=== PATIENT | male | born 1995 | race Caucasian/White ===

== ENCOUNTER 2017-02-26 19:37 | Emergency (ER) | payer OTHER ==
--- NOTE | 2017-02-26 21:02 | EDPHY ---
H & P Stated Complaint: thinks he has food stuck in throat Time Seen by Provider: 02/26/17 20:59 HPI/ROS: CHIEF COMPLAINT: Food stuck in throat HISTORY OF PRESENT ILLNESS: This patient is a 21 year old male complaining of a sensation of food stuck in his throat since this afternoon. He was eating chicken and felt a piece lodge in throat around the laryngeal prominence. He tried to vomit for an hour with no relief. He is able to breathe, talk, and swallow secretions. He had a similar episode about four years ago while eating steak. No other symptoms or complaints. REVIEW OF SYSTEMS: A 10 point review of systems was performed and is negative with the exception of the elements mentioned in the history of present illness. - Personal History Current Tetanus/Diphtheria Vaccine: Yes - Medical/Surgical History PMH: Asthma, Sinus surgery. Hx Asthma: Yes Hx Chronic Respiratory Disease: No Hx Diabetes: No Hx Cardiac Disease: No Hx Renal Disease: No Hx Cirrhosis: No Hx Alcoholism: No Hx HIV/AIDS: No Hx Splenectomy or Spleen Trauma: No Other PMH: PMHx: asthma. PSHx: sinus - Social History Smoking Status: Never smoked Additional Social History: Student. Mother at bedside. Nonsmoker. - Physical Exam Exam: General Appearance: Alert, no distress Eyes: Pupils equal and round, no conjunctival pallor or injection ENT, Mouth: Mucous membranes moist Neck: Normal inspection Respiratory: Lungs are clear to auscultation Cardiovascular: Regular rate and rhythm Gastrointestinal: Abdomen is soft and non- tender Neurological: A&O, nonfocal, normal gait Skin: Warm and dry, no rash Extremities: Nontender, no pedal edema Psychiatric: Mood and affect normal Constitutional: Initial Vital Signs Temperature (C) 37.1 C 02/26/17 19:39 Heart Rate 88 02/26/17 19:39 Respiratory Rate 16 02/26/17 19:39 Blood Pressure 120/72 02/26/17 19:39 O2 Sat (%) 97 02/26/17 19:39 O2 Delivery Mode Room Air Allergies/Adverse Reactions: No Known Allergies Allergy (Unverified 02/26/17 19:39) Home Medications: Medication Instructions Recorded NK [No Known Home Meds] 02/26/17 Medical Decision Making ED Course/Re-evaluation: 21 year old male presents with a piece of chicken lodged in his upper esophagus. An ED RN gave him Coke, and the patient passed the food bolus. He now feels completely well. I discussed the importance of follow up with gastroenterology for upper endoscopy to assess for stricture. Follow up and return precautions discussed. The patient is comfortable with this plan. Departure - Departure Disposition: Home, Routine, Self-Care Clinical Impression: Impacted esophageal foreign body Qualifiers: Encounter type: initial encounter Qualified Code(s): T18.108A - Unspecified foreign body in esophagus causing other injury, initial encounter Condition: Good Instructions: Esophageal Foreign Body (ED), Esophageal Stricture (ED) Additional Instructions: 1. Follow up with a GI specialist for further evaluation. We would recommend endoscopy to check for stricture. 2. Chew well and eat soft foods until reevaluation. 3. Return to the emergency department for difficulty speaking or breathing or if you have further difficulty swallowing unresolved or other worsening of condition. Referrals: KATHERINE MENDOZA [Other] - As per Instructions Sj Aparicio MD [Medical Doctor] - As per Instructions Report Scribed for: Yaneli Conrad Report Scribed by: Meche Valdez Date of Report: 02/26/17 Time of Report: 21:01 Physician Review and Approval Statement: 02/26/17 21:01 Portions of this note were transcribed by a medical services coordinator. I personally performed a history, physical exam, medical decision making, and confirmed accuracy of information the transcribed note.
[2017-02-26 21:30] VITALS: BP 111/64; PULSE 68; RESP 18; TEMP 98.4; O2SAT 98
== END 2017-02-26 21:27 | disposition home or self-care (01) ==
DX: T18.108A Unspecified foreign body in esophagus causing other injury, initial encounter (principal); J45.909 Unspecified asthma, uncomplicated; X58.XXXA Exposure to other specified factors, initial encounter